=== PATIENT | female | born 1960 | race Caucasian/White ===

== ENCOUNTER 2021-07-24 15:30 | Emergency (ER) | payer MEDICARE, OTHER ==
[~2021-07-24] VITALS: Ht 188 cm; Wt 83.7 kg
[~2021-07-24 15:30] MED LIST: ALBU8.5H8 INH; ATOR10TA PO; BUDE10.22 INH; DULO30CA2 PO; FLUO20CA19 PO; LORA1TAB PO; MOME13HF INH; PT TO BRING DOS; QUET1TAB PO; RABE20TA18 PO; SUCR1TAB33 PO; TIOT18CA INH
[2021-07-24] MEDS ORDERED: POTASSIUM CHLORIDE 20 MEQ TAB.ER.PRT ONE (16:28)
[2021-07-24 17:28] VITALS: BP 102/57
== END 2021-07-24 17:45 | disposition home or self-care (01) ==
LOC: ED 17:38
DX: M65.4 Radial styloid tenosynovitis [de Quervain] (principal); M25.532 Pain in left wrist; I10 Essential (primary) hypertension; J44.9 Chronic obstructive pulmonary disease, unspecified; M19.90 Unspecified osteoarthritis, unspecified site; E78.00 Pure hypercholesterolemia, unspecified; F17.200 Nicotine dependence, unspecified, uncomplicated; K21.9 Gastro-esophageal reflux disease without esophagitis
CPT/HCPCS: 29125; 99283